=== PATIENT | female | born 1945 | race Caucasian/White ===

== ENCOUNTER 2017-01-23 16:15 | Inpatient (IN) | payer MEDICARE, OTHER ==
[~2017-01-23 16:15] MED LIST: ACID CONTROLLER20 MG PO; AMARYL 2MG TABLE2 MG PO; AMLODIPINE BESY10 MG PO; ARICEPT5 MG GT; ASPIR 8181 MG GT; CALTRATE 600MG600 MG PO; CIPRO500 MG PO; COLACE100 MG GT; CYMBALTA20 MG PO; DILTIAZEM ER240 M1 PO; DULCOLAX10 MG PR; ELIQUIS 2.5 MG2.5 MG PO; ELIQUIS5 MG PO; LANTUS100 UNIT/1 SQ; LIPITOR TAB 2020 MG PO; LOPRESSOR50 MG PO; LORTAB 5-325 M1 EACH PO; NITRO-TIME9 MG PO; PRAVACHOL20 MG PO; PROTONIX40 MG PO; RANEXA1000 MG PO; SPIRIVA18 MCG INH; SYNTHROID50 MCG GT; SYNTHROID50 MCG PO; TYLENOL 325MG325 MG PO; TYLENOL 500 MG500 MG GT; VENTOLIN/PROVE0.5 ML INH; VITAMIN D1000 UNIT PO; [UNRECOGNIZED DRUG - CODE] PO
[2017-01-23 18:45] LABS: RED BLOOD COUNT 2.56 M/UL (4.00-5.10); WHITE BLOOD COUNT 12.5 K/UL (4.5-11.0)
[2017-01-23 18:50] LABS: HEMOGLOBIN 6.8 gm/dl (12.3-15.3)
[2017-01-23 18:59] LABS: BUN/CREATININE RATIO 50 (0-10)
[2017-01-24 02:29] LABS: HEMOGLOBIN 8.4 gm/dl (12.3-15.3)
[2017-01-24] MEDS ORDERED: PROCRIT10000 UNIT SQ (03:29)
[2017-01-24] MEDS ORDERED: DAILY VITE1 EACH GT (03:31)
[2017-01-24] MEDS ORDERED: GLUCOPHAGE 500500 MG GT (03:32)
[2017-01-24] MEDS ORDERED: NORVASC 5 MG TAB5 MG GT (03:32)
[2017-01-24] MEDS ORDERED: ESCITALOPRAM OX20 MG GT (03:33)
[2017-01-24] MEDS ORDERED: FERROUS SULFAT325 MG GT (03:34)
[2017-01-24] MEDS ORDERED: LIPITOR TAB 2020 MG GT (03:35)
[2017-01-24] MEDS ORDERED: NITROSTAT 0.40.4 MG SL (03:36)
[2017-01-24] MEDS ORDERED: TYLENOL 500 MG500 MG GT (03:37)
[2017-01-24] MEDS ORDERED: OMEPRAZOLE20 MG GT (03:38)
[2017-01-24] MEDS ORDERED: GLUCERNA 1.21000 ML GT (03:41)
[2017-01-24 07:59] LABS: HEMOGLOBIN 9.3 gm/dl (12.3-15.3)
[2017-01-25 04:29] LABS: HEMOGLOBIN 9.1 gm/dl (12.3-15.3)
[2017-01-25 04:36] LABS: RED BLOOD COUNT 3.31 M/UL (4.00-5.10)
[2017-01-26 04:34] LABS: HEMOGLOBIN 8.4 gm/dl (12.3-15.3)
[2017-01-26 11:53] LABS: HEMOGLOBIN 8.3 gm/dl (12.3-15.3); RED BLOOD COUNT 2.99 M/UL (4.00-5.10)
[2017-01-26 12:17] LABS: BUN/CREATININE RATIO 82 (0-10)
[2017-01-27 04:10] LABS: HEMOGLOBIN 8.4 gm/dl (12.3-15.3); RED BLOOD COUNT 3.07 M/UL (4.00-5.10); WHITE BLOOD COUNT 13.9 K/UL (4.5-11.0)
[2017-01-27 04:28] LABS: BUN/CREATININE RATIO 81 (0-10)
[2017-01-28 04:37] LABS: HEMOGLOBIN 7.9 gm/dl (12.3-15.3); RED BLOOD COUNT 2.83 M/UL (4.00-5.10); WHITE BLOOD COUNT 15.7 K/UL (4.5-11.0)
== END 2017-01-28 17:00 | DRG 377 ==
LOC: ER1 16:15 → ZEROF 01-24 00:30 → PROG CARE 01-24 00:30
PROVIDERS: Emergency Medicine; Internal Medicine; Internal Medicine Gastroenterology; ADMIT Hospitalist
PROC: 30233N1 Transfusion of Nonautologous Red Blood Cells into Peripheral Vein, Percutaneous Approach (ICD-10-PCS; 2017-01-23)
PROC: 0DJ08ZZ Inspection of Upper Intestinal Tract, Via Natural or Artificial Opening Endoscopic (ICD-10-PCS; principal; 2017-01-27 12:15)
DX: K92.2 Gastrointestinal hemorrhage, unspecified (principal); L89.154 Pressure ulcer of sacral region, stage 4; D62 Acute posthemorrhagic anemia; C64.2 Malignant neoplasm of left kidney, except renal pelvis; I25.10 Atherosclerotic heart disease of native coronary artery without angina pectoris; E11.9 Type 2 diabetes mellitus without complications; K26.9 Duodenal ulcer, unspecified as acute or chronic, without hemorrhage or perforation; K29.60 Other gastritis without bleeding; E03.9 Hypothyroidism, unspecified; I10 Essential (primary) hypertension; E78.5 Hyperlipidemia, unspecified; E55.9 Vitamin D deficiency, unspecified; D75.1 Secondary polycythemia; F03.90 Unspecified dementia, unspecified severity, without behavioral disturbance, psychotic disturbance, mood disturbance, and anxiety; R74.8 Abnormal levels of other serum enzymes; I65.29 Occlusion and stenosis of unspecified carotid artery; M19.90 Unspecified osteoarthritis, unspecified site; Z95.5 Presence of coronary angioplasty implant and graft; Z86.718 Personal history of other venous thrombosis and embolism; Z86.73 Personal history of transient ischemic attack (TIA), and cerebral infarction without residual deficits; Z66 Do not resuscitate; Z74.01 Bed confinement status; Z93.1 Gastrostomy status; Z79.01 Long term (current) use of anticoagulants; Z79.84 Long term (current) use of oral hypoglycemic drugs; Z79.1 Long term (current) use of non-steroidal anti-inflammatories (NSAID); Z79.4 Long term (current) use of insulin; Z99.81 Dependence on supplemental oxygen; Z79.899 Other long term (current) drug therapy; Z88.5 Allergy status to narcotic agent; Z91.041 Radiographic dye allergy status; Z90.49 Acquired absence of other specified parts of digestive tract; Z98.890 Other specified postprocedural states; Z82.3 Family history of stroke; Z83.3 Family history of diabetes mellitus; Z82.0 Family history of epilepsy and other diseases of the nervous system
CPT/HCPCS: ECHO; 36415; 36430; 51702; 70450; 71010; 80048; 80053; 81001; 82272; 82550; 82553; 82962; 83010; 83615; 83874; 84484; 85014; 85018; 85025; 85027; 85045; 85610; 85730; 86850; 86900; 86901; 86920; 87086; 93005; 93306; 94640; 96360; 96361; 99291; C9113; J1817; J2250; J7040; J7050; P9016

== ENCOUNTER 2017-02-13 18:08 | Inpatient (IN) | payer MEDICARE, OTHER ==
[~2017-02-13] VITALS: Ht 165.1 cm; Wt 46.3 kg
[~2017-02-13 18:08] MED LIST changes: +DAILY VITE1 EACH GT; +ESCITALOPRAM OX20 MG GT; +FERROUS SULFAT325 MG GT; +GLUCERNA 1.21000 ML GT; +GLUCOPHAGE 500500 MG GT; +LIPITOR TAB 2020 MG GT; +NITROSTAT 0.40.4 MG SL; +NORVASC 5 MG TAB5 MG GT; +OMEPRAZOLE20 MG GT; +PROCRIT10000 UNIT SQ
[2017-02-13 19:44] LABS: RED BLOOD COUNT 2.61 M/UL (4.00-5.10); WHITE BLOOD COUNT 14.1 K/UL (4.5-11.0)
[2017-02-13 19:48] LABS: HEMOGLOBIN 6.6 gm/dl (12.3-15.3)
[2017-02-14 07:23] LABS: WHITE BLOOD COUNT 12.8 K/UL (4.5-11.0)
[2017-02-14 07:32] LABS: RED BLOOD COUNT 3.32 M/UL (4.00-5.10)
[2017-02-14] MEDS ORDERED: JUVEN PACKET1 EACH GT (17:15)
[2017-02-14] MEDS ORDERED: NOVOLOG 10100 UNITS/ INJ (17:16)
[2017-02-16 05:56] LABS: HEMOGLOBIN 8.4 gm/dl (12.3-15.3)
[2017-02-16 06:13] LABS: BUN/CREATININE RATIO 56 (0-10)
[2017-02-16 22:45] LABS: BUN/CREATININE RATIO 59 (0-10)
[2017-02-17 05:19] LABS: HEMOGLOBIN 8.8 gm/dl (12.3-15.3)
[2017-02-17 05:36] LABS: BUN/CREATININE RATIO 60 (0-10)
[2017-02-18 06:22] LABS: BUN/CREATININE RATIO 56 (0-10)
[2017-02-20 05:06] LABS: HEMOGLOBIN 8.5 gm/dl (12.3-15.3); RED BLOOD COUNT 3.1 M/UL (4.00-5.10); WHITE BLOOD COUNT 9.9 K/UL (4.5-11.0)
[2017-02-20 05:22] LABS: BUN/CREATININE RATIO 50 (0-10)
[2017-02-21 04:55] LABS: HEMOGLOBIN 8.8 gm/dl (12.3-15.3); RED BLOOD COUNT 3.25 M/UL (4.00-5.10); WHITE BLOOD COUNT 10.5 K/UL (4.5-11.0)
[2017-02-21 05:01] LABS: BUN/CREATININE RATIO 53 (0-10)
== END 2017-02-22 19:11 | DRG 377 ==
LOC: ER1 18:08 → MED SURG 4 21:45 → ZEROF 21:45 → MED SURG 4 02-14 23:04
PROVIDERS: Emergency Medicine; Hospitalist; Internal Medicine Infectious Disease; ADMIT Internal Medicine
PROC: 30233N1 Transfusion of Nonautologous Red Blood Cells into Peripheral Vein, Percutaneous Approach (ICD-10-PCS; 2017-02-13)
PROC: 30233N1 Transfusion of Nonautologous Red Blood Cells into Peripheral Vein, Percutaneous Approach (ICD-10-PCS; principal; 2017-02-14)
DX: K26.0 Acute duodenal ulcer with hemorrhage (principal); L89.154 Pressure ulcer of sacral region, stage 4; R53.2 Functional quadriplegia; D62 Acute posthemorrhagic anemia; I24.8 Other forms of acute ischemic heart disease; E44.0 Moderate protein-calorie malnutrition; Z68.1 Body mass index [BMI] 19.9 or less, adult; E87.0 Hyperosmolality and hypernatremia; N17.9 Acute kidney failure, unspecified; I48.0 Paroxysmal atrial fibrillation; E11.65 Type 2 diabetes mellitus with hyperglycemia; E03.9 Hypothyroidism, unspecified; D50.9 Iron deficiency anemia, unspecified; F03.90 Unspecified dementia, unspecified severity, without behavioral disturbance, psychotic disturbance, mood disturbance, and anxiety; Z66 Do not resuscitate; Z74.01 Bed confinement status; Z93.1 Gastrostomy status; Z79.4 Long term (current) use of insulin; Z79.84 Long term (current) use of oral hypoglycemic drugs; Z79.82 Long term (current) use of aspirin; Z79.1 Long term (current) use of non-steroidal anti-inflammatories (NSAID); Z79.899 Other long term (current) drug therapy
CPT/HCPCS: 36415; 71010; 80048; 80053; 81001; 82272; 82550; 82553; 82728; 82962; 83540; 83550; 83874; 84443; 84484; 85014; 85018; 85025; 85610; 85730; 86850; 86900; 86901; 86920; 87070; 87077; 87086; 87186; 87205; 93005; 94640; 94664; 94760; 96372; 99284; C9113; J0885; J1335; J1756; J1815; J7050; P9016

== ENCOUNTER 2017-03-20 10:18 | Inpatient (IN) | payer MEDICARE, OTHER ==
[~2017-03-20] VITALS: Ht 167.6 cm; Wt 56.2 kg
[~2017-03-20 10:18] MED LIST changes: +JUVEN PACKET1 EACH GT; +NOVOLOG 10100 UNITS/ INJ
[2017-03-20 11:21] LABS: HEMOGLOBIN 7.3 gm/dl (12.3-15.3); RED BLOOD COUNT 2.74 M/UL (4.00-5.10); WHITE BLOOD COUNT 18.9 K/UL (4.5-11.0)
[2017-03-20] MEDS ORDERED: ROCEPHIN 1 GM AD1 GM IV (19:38)
[2017-03-20] MEDS ORDERED: REMEDY CALAZIM113 G1 TP (19:40)
[2017-03-20] MEDS ORDERED: DAKIN'S SOLUTI500 ML EXT (19:43)
[2017-03-21 01:45] LABS: ACINETOBACTER BAUMANNII Not Detected (Negative); CANDIDA ALBICANS Not Detected (Negative); CANDIDA KRUSEI Not Detected (Negative); CANDIDA TROPICALIS Not Detected (Negative); ENTEROCOCCUS Not Detected (Negative); ESCHERICHIA COLI Not Detected (Negative); HAEMOPHILUS INFLUENZAE Not Detected (Negative); KLEBSIELLA OXYTOCA Not Detected (Negative); KLEBSIELLA PNEUMONIAE Not Detected (Negative); KPC-CARBAPENEM-RESISTANCE GENE Not Detected (Negative); PROTEUS Not Detected (Negative); PSEUDOMONAS AERUGINOSA Not Detected (Negative); SERRATIA MARCESANS Not Detected (Negative); STAPHYLOCOCCUS AUREUS Not Detected (Negative); STREP AGALACTIAE (GROUP B) Not Detected (Negative); STREP PYOGENES (GROUP A) Not Detected (Negative); STREPTOCOCCUS Not Detected (Negative); vanA/B (VANCOMYCIN RESIST GENE Not Detected (Negative)
[2017-03-21 03:14] LABS: STAPHYLOCOCCUS DETECTED (Negative)
[2017-03-21 03:15] LABS: mecA (METHICILLIN RESIST GENE DETECTED (Negative)
[2017-03-22 04:42] LABS: RED BLOOD COUNT 2.51 M/UL (4.00-5.10); WHITE BLOOD COUNT 16.6 K/UL (4.5-11.0)
[2017-03-22 04:44] LABS: HEMOGLOBIN 6.5 gm/dl (12.3-15.3)
[2017-03-22 16:27] LABS: HEMOGLOBIN 7.9 gm/dl (12.3-15.3)
[2017-03-24 05:00] LABS: BUN/CREATININE RATIO 81 (0-10)
[2017-03-25 05:12] LABS: HEMOGLOBIN 8.5 gm/dl (12.3-15.3)
[2017-03-25 05:13] LABS: RED BLOOD COUNT 3.14 M/UL (4.00-5.10); WHITE BLOOD COUNT 11.2 K/UL (4.5-11.0)
[2017-03-25 05:22] LABS: BUN/CREATININE RATIO 87 (0-10)
[2017-03-26 04:55] LABS: HEMOGLOBIN 8.6 gm/dl (12.3-15.3); RED BLOOD COUNT 3.13 M/UL (4.00-5.10); WHITE BLOOD COUNT 11.5 K/UL (4.5-11.0)
[2017-03-26 05:16] LABS: BUN/CREATININE RATIO 75 (0-10)
[2017-03-27 04:43] LABS: HEMOGLOBIN 8.6 gm/dl (12.3-15.3); RED BLOOD COUNT 3.14 M/UL (4.00-5.10); WHITE BLOOD COUNT 11.2 K/UL (4.5-11.0)
[2017-03-27 05:00] LABS: BUN/CREATININE RATIO 78 (0-10)
[2017-03-28 04:35] LABS: HEMOGLOBIN 8.7 gm/dl (12.3-15.3); RED BLOOD COUNT 3.18 M/UL (4.00-5.10); WHITE BLOOD COUNT 10.5 K/UL (4.5-11.0)
[2017-03-28 04:51] LABS: BUN/CREATININE RATIO 75 (0-10)
== END 2017-03-28 15:11 | DRG 871 ==
LOC: ER1 10:18 → MED SURG 4 14:14 → CCU 14:14 → ZEROF 14:14 → CCU 19:06 → MED SURG 4 03-25 13:36
PROVIDERS: Internal Medicine; Internal Medicine Nephrology; Physician Assistant; ADMIT Internal Medicine
PROC: 3E0G76Z Introduction of Nutritional Substance into Upper GI, Via Natural or Artificial Opening (ICD-10-PCS; principal; 2017-03-20)
PROC: 30233N1 Transfusion of Nonautologous Red Blood Cells into Peripheral Vein, Percutaneous Approach (ICD-10-PCS; 2017-03-22)
DX: A41.1 Sepsis due to other specified staphylococcus (principal); L89.154 Pressure ulcer of sacral region, stage 4; L89.893 Pressure ulcer of other site, stage 3; E43 Unspecified severe protein-calorie malnutrition; R65.21 Severe sepsis with septic shock; E87.0 Hyperosmolality and hypernatremia; N17.9 Acute kidney failure, unspecified; C64.2 Malignant neoplasm of left kidney, except renal pelvis; Z68.1 Body mass index [BMI] 19.9 or less, adult; Z43.1 Encounter for attention to gastrostomy; I48.92 Unspecified atrial flutter; E86.0 Dehydration; Z46.89 Encounter for fitting and adjustment of other specified devices; I12.9 Hypertensive chronic kidney disease with stage 1 through stage 4 chronic kidney disease, or unspecified chronic kidney disease; E11.65 Type 2 diabetes mellitus with hyperglycemia; E11.22 Type 2 diabetes mellitus with diabetic chronic kidney disease; N18.9 Chronic kidney disease, unspecified; I69.898 Other sequelae of other cerebrovascular disease; F03.90 Unspecified dementia, unspecified severity, without behavioral disturbance, psychotic disturbance, mood disturbance, and anxiety; L89.312 Pressure ulcer of right buttock, stage 2; I48.91 Unspecified atrial fibrillation; D64.9 Anemia, unspecified; Z66 Do not resuscitate; R50.9 Fever, unspecified; Z79.899 Other long term (current) drug therapy; Z88.5 Allergy status to narcotic agent; K27.9 Peptic ulcer, site unspecified, unspecified as acute or chronic, without hemorrhage or perforation; I25.2 Old myocardial infarction; Z74.01 Bed confinement status; Z79.01 Long term (current) use of anticoagulants; Z79.1 Long term (current) use of non-steroidal anti-inflammatories (NSAID); Z79.84 Long term (current) use of oral hypoglycemic drugs; Z79.4 Long term (current) use of insulin; Z79.82 Long term (current) use of aspirin; I73.9 Peripheral vascular disease, unspecified; Z95.820 Peripheral vascular angioplasty status with implants and grafts; Z86.718 Personal history of other venous thrombosis and embolism; R19.7 Diarrhea, unspecified; Z88.6 Allergy status to analgesic agent; Z88.8 Allergy status to other drugs, medicaments and biological substances; Z91.041 Radiographic dye allergy status
CPT/HCPCS: 36415; 36600; 70450; 71010; 80048; 80053; 80162; 80202; 81001; 82272; 82436; 82550; 82553; 82803; 82962; 83605; 83735; 83874; 84100; 84133; 84295; 84300; 84439; 84484; 85014; 85018; 85025; 85027; 85610; 86850; 86900; 86901; 86920; 87040; 87077; 87150; 87186; 93005; 94640; 96361; 96374; 96375; 99291; C9113; J0696; J1160; J1335; J1815; J2185; J2370; J3370; J7030; J7050; J7060; J7070; P9016